=== PATIENT | male | born 1970 | race Caucasian/White ===

== ENCOUNTER 2018-01-26 11:49 | Emergency (ER) | payer BC ==
[~2018-01-26] VITALS: Ht 193 cm; Wt 133.8 kg
[2018-01-26] MEDS ORDERED: SERTRALINE HCL25 MG PO (12:30)
[2018-01-26] MEDS ORDERED: NORCO 5-325 TA1 EACH PO (13:51)
== END 2018-01-26 14:02 | disposition home or self-care (01) ==
LOC: ED 11:49
DX: S93.401A Sprain of unspecified ligament of right ankle, initial encounter (principal); X50.9XXA Other and unspecified overexertion or strenuous movements or postures, initial encounter; Z87.891 Personal history of nicotine dependence; Z88.0 Allergy status to penicillin; Z79.899 Other long term (current) drug therapy
CPT/HCPCS: 73610; 99283